=== PATIENT | male | born 1940 | race Caucasian/White ===

== ENCOUNTER 2019-04-06 11:47 | Emergency (ER) | payer MEDICARE ==
[~2019-04-06] VITALS: Ht 177.8 cm; Wt 86.4 kg
[2019-04-06 12:04] VITALS: BP 154/73
[2019-04-06] MEDS ORDERED: proparacaine 0.5% ophthalmic drops 15ml EACHEYE ONE (13:55)
[2019-04-06] MEDS ORDERED: CIPR2.5D18 EACHEYE (14:20)
== END 2019-04-06 14:26 | disposition home or self-care (01) ==
LOC: ER 11:48
DX: T15.01XA Foreign body in cornea, right eye, initial encounter (principal); Z79.899 Other long term (current) drug therapy; W22.8XXA Striking against or struck by other objects, initial encounter; Y93.89 Activity, other specified; Y92.89 Other specified places as the place of occurrence of the external cause; Y99.8 Other external cause status
CPT/HCPCS: 65220; 99284

== ENCOUNTER 2023-05-23 11:13 | Day surgery (SDC) | payer MEDICARE ==
[~2023-05-23] VITALS: Ht 177.8 cm; Wt 77.1 kg
[2023-05-23] VITALS (12 sets, daily range): BP systolic 108–154; BP diastolic 48–120; PULSE 50–61; RESP 16; TEMP 97.8; O2SAT 92–99
[~2023-05-23 11:13] MED LIST: APIX5TAB3 PO; FINA5TAB11 PO; FLO0.4C; LISI10TA27 PO; OMEP40CA21 PO; ROSU5TAB12 PO; SITA100T11 PO; SOTA80TA73 PO
[2023-05-23] MEDS ORDERED: LIDOcaine 1% 30ml preserv. free vial ONE (11:36)
[2023-05-23] MEDS ORDERED: normal saline 1000ml 1,000 ML IV PRN (11:40)
[2023-05-23] MEDS ORDERED: MULT-1085 PO (12:15)
[2023-05-23] MEDS ORDERED: CELE-127 PO (12:15)
[2023-05-23 12:28] LABS: BASOPHILS # (AUTO) 0.1 X10'3 (0-0.2); BASOPHILS % (AUTO) 0.7 % (0-1); EOSINOPHILS # (AUTO) 0.3 X10'3 (0-0.9); EOSINOPHILS % (AUTO) 3.2 % (0-6); HEMOGLOBIN 14.2 g/dl (14.0-17.9); WHITE BLOOD COUNT 10.1 X10'3 (4.5-11.0)
[2023-05-23 12:29] LABS: LYMPHOCYTES # (AUTO) 1.7 X10'3 (1.1-4.8); LYMPHOCYTES % (AUTO) 17.2 % (21-51); MEAN CORPUSCULAR HEMOGLOBIN 32.8 PG (27.0-31.0); MEAN CORPUSCULAR HGB CONC 33.1 g/dL (33.0-36.5); MEAN CORPUSCULAR VOLUME 99.1 FL (78-98); MEAN PLATELET VOLUME 10.9 FL (7.4-10.4); MONOCYTES % (AUTO) 10.1 % (2-12); NEUTROPHILS % (AUTO) 68.8 % (42-75); PLATELET COUNT 211 X10'3 (140-440); RED BLOOD COUNT 4.33 X10'6 (4.70-6.10); RED CELL DISTRIBUTION WIDTH 14.8 % (11.5-14.5)
[2023-05-23 12:30] LABS: INR 1.1 INR; PROTHROMBIN TIME 11.5 SECONDS (9.0-12.0)
== END 2023-05-23 14:38 | disposition home or self-care (01) ==
LOC: SSTAY O 11:13
PROVIDERS: ATTEND Radiology Vascular & Interventional Radiology
DX: M89.8X5 Other specified disorders of bone, thigh (principal); E11.9 Type 2 diabetes mellitus without complications; I10 Essential (primary) hypertension; Z87.891 Personal history of nicotine dependence; Z79.899 Other long term (current) drug therapy; Z79.01 Long term (current) use of anticoagulants; Z85.118 Personal history of other malignant neoplasm of bronchus and lung; Z90.2 Acquired absence of lung [part of]; Z82.61 Family history of arthritis
CPT/HCPCS: 20225; 36415; 77012; 82948; 85025; 85610; 99152; 99153; J3490; J7030; 71250; A6258

== ENCOUNTER 2023-05-25 05:28 | Day surgery (SDC) | payer MEDICARE ==
[2023-05-21 15:06] LABS: BASOPHILS # (AUTO) 0.1 X10'3 (0-0.2); BASOPHILS % (AUTO) 0.7 % (0-1); EOSINOPHILS # (AUTO) 0.4 X10'3 (0-0.9); MEAN CORPUSCULAR VOLUME 98.9 FL (78-98)
[2023-05-21 15:08] LABS: EOSINOPHILS % (AUTO) 4.5 % (0-6); LYMPHOCYTES # (AUTO) 1.7 X10'3 (1.1-4.8); LYMPHOCYTES % (AUTO) 20.5 % (21-51); MEAN CORPUSCULAR HEMOGLOBIN 33.2 PG (27.0-31.0); MEAN CORPUSCULAR HGB CONC 33.6 g/dL (33.0-36.5); MEAN PLATELET VOLUME 10.3 FL (7.4-10.4); MONOCYTES % (AUTO) 11.7 % (2-12); NEUTROPHILS # (AUTO) 5.2 X10'3 (1.8-7.7); NEUTROPHILS % (AUTO) 62.6 % (42-75); PRE OP HEMATOCRIT 41.7 % (42.0-52.0); PRE OP PLATELET COUNT 199 X10'3 (140-440); PRE OP WHITE BLOOD COUNT 8.4 10'3 (4.8-10.8); RED BLOOD COUNT 4.22 X10'6 (4.70-6.10); RED CELL DISTRIBUTION WIDTH 14.3 % (11.5-14.5)
[2023-05-21 15:14] LABS: ALBUMIN 3.3 G/DL (3.4-5.0); ALBUMIN/GLOBULIN RATIO 0.9 (1.1-1.5); ALKALINE PHOSPHATASE 92 IU/L (46-116); BLOOD UREA NITROGEN 18 MG/DL (7-18); BUN/CREATININE RATIO 20.5 (10.0-20.0); CALCIUM 9.4 MG/DL (8.5-10.1); CHLORIDE 103 MMOL/L (99-107); CREATININE 0.88 MG/DL (0.60-1.10); PRE OP ALT 20 U/L (30-65); PRE OP ANION GAP 7 (8-16); PRE OP AST 17 U/L (10-37); PRE OP BILIRUB, TOTAL 0.4 MG/DL (0.0-1.0); PRE OP GLUCOSE 109 MG/DL (70-104); PRE OP POTASSIUM 4.3 MMOL/L (3.4-5.1); PRE OP SODIUM 142 MMOL/L (135-145); TOTAL CARBON DIOXIDE 32.1 MMOL/L (24-32); eGFR 83 ML/MIN
[2023-05-21 16:10] LABS: GIANT PLATELET FEW; LARGE PLATELETS FEW; PLATELET ESTIMATE NORMAL
[2023-05-24] MEDS: DOCUMENT DATE & TIME OF BETA-BLOCKER PO ONE (19:00)
[2023-05-25] VITALS (9 sets, daily range): BP systolic 137–158; BP diastolic 62–74; PULSE 47–67; RESP 15–67; TEMP 98.4; O2SAT 94–100
[~2023-05-25] VITALS: Ht 180.3 cm; Wt 76.0 kg
[~2023-05-25 05:28] MED LIST changes: +CELE-127 PO; +MULT-1085 PO; +fentaNYL/PF 50MCG/1 ML 2ML syringe ONE; +midazolam 1 mg/ML 2ml injection ONE
[2023-05-25] MEDS: famotidine 20mg tablet PO ONE (06:17)
[2023-05-25] MEDS: ringers solution, lacted 1,000 ML IV SCH (06:18)
[2023-05-25] MEDS ORDERED: epiNEPHrine 1 MG/ML 1 ml ampule **BRONCH ONLY ONE (07:26)
[2023-05-25] MEDS ORDERED: LIDOCAINE 4% (40MG/ML) topical solution 50ml **BRONCH ONLY ONE (07:26)
[2023-05-25] MEDS ORDERED: sevoflurane 250ml liquid IH ONE (07:45)
[2023-05-25] MEDS ORDERED: dexamethasone sod phosphate 10mg/ml inj ONE (07:45)
[2023-05-25] MEDS ORDERED: ePHEDrine 50MG/ML INJ. ONE (07:45)
[2023-05-25] MEDS ORDERED: fentaNYL/PF 50MCG/1 ML 2ML syringe ONE (07:54)
[2023-05-25] MEDS ORDERED: midazolam 1 mg/ML 2ml injection ONE (07:54)
[2023-05-25] MEDS ORDERED: propofol inj 20 ML IV ONE (08:15)
[2023-05-25] MEDS ORDERED: ondansetron/PF 4mg/2ml inj ONE (08:15)
[2023-05-25] MEDS ORDERED: rocuronium 10mg/ml inj IV ONE (08:15)
[2023-05-25] MEDS ORDERED: glycopyrrolate 0.2mg/ml inj ONE (08:16)
[2023-05-25] MEDS ORDERED: neostigmine methylsulfate 1 MG/ML 10ml vial ONE (08:16)
[2023-05-25] MEDS ORDERED: ringers solution, lacted 1,000 ML IV SCH (08:30)
[2023-05-25] MEDS ORDERED: labetalol 20mg/4ml (5mg/ml) syringe IV PRN (08:30)
[2023-05-25] MEDS ORDERED: fentaNYL/PF 50MCG/1 ML 2ML syringe IV PRN ×2 (08:30)
[2023-05-25] MEDS ORDERED: hydrALAZINE 20mg/ml inj. IV PRN (08:30)
[2023-05-25] MEDS ORDERED: morphine 2 MG/ML inj. syringe IV PRN (08:30)
[2023-05-25] MEDS ORDERED: morphine 4 MG/ML inj SYRINge IV PRN (08:30)
[2023-05-25] MEDS ORDERED: ondansetron/PF 4mg/2ml inj IV PRN (08:30)
== END 2023-05-25 10:35 | disposition home or self-care (01) ==
LOC: PAS 05:28
PROVIDERS: ATTEND Internal Medicine Critical Care Medicine
DX: R91.8 Other nonspecific abnormal finding of lung field (principal); C34.32 Malignant neoplasm of lower lobe, left bronchus or lung; J44.9 Chronic obstructive pulmonary disease, unspecified; I10 Essential (primary) hypertension; E11.9 Type 2 diabetes mellitus without complications; Z98.890 Other specified postprocedural states; Z79.01 Long term (current) use of anticoagulants; Z79.899 Other long term (current) drug therapy; Z86.718 Personal history of other venous thrombosis and embolism; F17.210 Nicotine dependence, cigarettes, uncomplicated; Z90.2 Acquired absence of lung [part of]
CPT/HCPCS: 31624; 31628; 31629; 31653; 36415; 71045; 71250; 80053; 82948; 85025; 87015; 87070; 87116; 87206; 88172; 88173; 88305; 88341; 88342; 93005; 94760; J1100; J2250; J2405; J2704; J2710; J3010; J3490; J7120; Z7506; Z7508; Z7512; 31622; 31625; 31626; 31635; 31654; 85008; A4615; A4618; J0171

== ENCOUNTER 2024-12-03 08:35 | Day surgery (SDC) | payer MEDICARE ==
[2024-12-02 12:39] LABS: MEAN PLATELET VOLUME 9.9 FL (7.4-10.4); RED CELL DISTRIBUTION WIDTH 15.1 % (11.5-14.5)
[2024-12-02 12:47] LABS: CREATININE 0.77 MG/DL (0.60-1.10); TOTAL CARBON DIOXIDE 31.4 MMOL/L (24-32); eGFR > 90 ML/MIN
[2024-12-02 12:48] LABS: APTT 26 SECONDS (22-32); INR 1.0 INR
[2024-12-03] VITALS (11 sets, daily range): BP systolic 100–158; BP diastolic 51–98; PULSE 51–66; RESP 14–16; TEMP 98.4; O2SAT 95–97
[~2024-12-03] VITALS: Ht 177.8 cm; Wt 77.7 kg
[~2024-12-03 08:35] MED LIST changes: -ROSU5TAB12 PO; +ROSU5TAB51 PO; -fentaNYL/PF 50MCG/1 ML 2ML syringe ONE; -midazolam 1 mg/ML 2ml injection ONE
[2024-12-03] MEDS ORDERED: FLUT1BLS4 INH (09:26)
[2024-12-03] MEDS ORDERED: SOTA120T9 PO (09:26)
[2024-12-03] MEDS ORDERED: fentaNYL/PF 50MCG/1 ML 2ML syringe ONE (13:27)
[2024-12-03] MEDS ORDERED: LIDOcaine 1% (10mg/ml) 2ml vial ONE (13:27)
[2024-12-03] MEDS ORDERED: midazolam 1 mg/ML 2ml injection ONE (13:27)
[2024-12-03] MEDS ORDERED: verapamil 2.5 mg/ml inj IV ONE (13:27)
[2024-12-03] MEDS ORDERED: nitroGLYCERIN 500mcg/5mL D5W 5 ML IV ONE ×2 (13:28→15:04)
[2024-12-03] MEDS ORDERED: iohexol 350 MG/ML 50ML vial IV ONE (13:28)
[2024-12-03] MEDS ORDERED: heparin 1,000unit/ml 10ml vial 10 ML ONE (13:28)
[2024-12-03] MEDS ORDERED: heparin 25,000 UNIT/250ml bag 250 ML IV ONE (14:17)
[2024-12-03] MEDS ORDERED: phenylephrine 10mg/ml inj. ONE (15:10)
[2024-12-03] MEDS ORDERED: clopidogrel 300mg tablet ONE (15:23)
[2024-12-03 15:29] LABS: ISTAT HGB ART 11.9 g/dl (14.0-17.9); ISTAT Hct ART 35 %PCV (42-52); ISTAT O2 SATURATION ARTERIAL 94 % (95-98); ISTAT SOURCE ART
[2024-12-03] MEDS ORDERED: CLOP75TA34 PO (16:12)
[2024-12-03] MEDS ORDERED: ASPI81TA52 PO (16:12)
[2024-12-03] MEDS ORDERED: ROSU40TA PO (16:12)
--- NOTE | 2024-12-03 16:24 | ELECTROCARDIOGRAPH REPORT ---
[facility] Test Date: 2024-12-03 Test Time: 16:22:43 Pat Name: JOSE ALBERTO HARPER Department: [facility] Patient ID: [id number] Room: Gender: M Cath Lab Tech: : [id number] Requested By: TORIBIO BURNETT Order Number: [id number] Reading MD: Dr. RENATA Burnett Measurements Intervals Walling Rate: 49 P: 17 WA: 168 QRS: 52 QRSD: 95 T: 46 QT: 437 QTc: 395 Interpretive Statements Sinus bradycardia Abnormal R-wave progression, early transition Electronically Signed On 12-05-2024 20:18:[address] RENATA Burnett Please click the below link to view image of tracing.
[2024-12-03] MEDS ORDERED: HYDROcodone/acetaminophen 5mg/325mg tablet PO PRN (16:35)
[2024-12-03] MEDS ORDERED: HYDROcodone/acetaminophen 10/325mg tab PO PRN (16:35)
[2024-12-04 06:45] LABS: ISTAT HGB MIX 10.2 g/dl (14.0-17.9); ISTAT Hct MIX 30 %PCV (42-52); ISTAT O2 SATURATION MIX VENOUS 69 % (60-80); ISTAT SOURCE VEN
--- NOTE | 2024-12-06 08:13 | CARDIOLOGY REPORT ---
DATE OF SERVICE: 12/03/2024 DICTATING PHYSICIAN: RENATA Burnett MD CARDIAC CATHETERIZATION GENDER: Male. AGE: 84 years. HEIGHT: 177 cm. WEIGHT: 77.7 kg. BODY SURFACE AREA: 1.95 m2. PRIMARY PHYSICIAN: Prem Kumar MD. TOURIST CABIN KEEPER: RENATA Burnett MD INDICATION: The patient is an 84-year-old male with history of diabetes, hypertension, hyperlipidemia, and COPD with continued exertional fatigue and shortness of breath. He underwent myocardial perfusion scan, found to have apical reversible defect in view of progressive increasing severe tiredness and fatigue. The patient prefers to proceed with coronary angiography. Risks, benefits, and alternative options were discussed. Informed consent was obtained. PROCEDURE TECHNIQUE: The patient underwent left heart catheterization with a right radial approach, 6-Sudanese radial sheath, post-procedure access site hemostasis with right radial band. The patient tolerated the procedure well. The patient also had a right antecubital and right heart catheterization, 6-Sudanese sheath, post-procedure access site hemostasis with manual compression. PROCEDURES DONE: * Ultrasound-guided right radial artery access. * Right heart catheterization. * Left heart catheterization. * LVG. * Coronary cineangiography. * Angioplasty of the diagonal branch. * PTCA stenting of the LAD. * Conscious sedation for 105 minutes. FINDINGS: HEMODYNAMICS: Aortic systolic 130, diastolic 60, mean 81 mmHg. LVEDP of 24 mmHg. No gradient across the aortic valve. Right atrial mean 5 mmHg. RV 26/7 mmHg. PA 29/8 mmHg. Pulmonary capillary wedge pressure of 7 mmHg. Cardiac output thermal dilution with 4.25 L/min. Cardiac index is 2.08 L/min/m2. LVG: Overall left ventricular systolic function is normal with 70%. CORONARY CINEANGIOGRAPHY: Left main coronary artery is a caliber vessel arising at the left aortic sinus engaged with JL4 catheter with right radial approach, has mild luminal irregularities. LAD is a medium caliber vessel arising at the bifurcation of the left main coronary artery, courses through the anterior intraventricular groove and ends by wrapping around the apex. There is 80% narrowing of the LAD in the proximal portion just proximal to the origin of the diagonal branch. Diagonal is 2.25 caliber with mild luminal irregularities. LAD in the mid portion and has about 20% narrowing. Circumflex artery is a medium caliber vessel arising at bifurcation of the left main coronary artery which courses through the left AV groove with mild luminal irregularities. OM1 is 2 mm caliber with mild luminal irregularities. OM2 is 2.5 mm caliber with mild luminal irregularities. OM3 is 2 mm caliber with minimal luminal irregularities. There is 1.5 mm ramus intermedius seen. Right coronary artery is a medium caliber dominant vessel arising at the right aortic sinus which courses through the right AV groove, ends at the posterior crux by dividing into PDA and posterolateral branch. Mid RCA has about 40% narrowing. PTCA STENTING OF THE PROXIMAL LAD A 6-Sudanese XT LAD #4 guide without side hole gave good support. Lesion was crossed with PT2 moderate wire. However, there was difficulty in crossing through or putting a wire in the diagonal branch. Because of the acute angulation there, finally, it was decided to modify the lesion with the angioplasty of the LAD. LAD lesion was angioplastied with 2.75 x 12 mm Trek balloon at 12 atmospheric pressure. Subsequently, we were able to wire the diagonal branch, which was angioplastied with 2.25 x 12 mm Trek balloon. Subsequently, LAD was stented with 3.5 x 18 mm Resolute Knightsen stent postdilated to 14 atmospheres with 0% JOSE 3 flow. The patient tolerated the procedure well with good antegrade flow and diagonal flow was also very good. There was no compromise of the diagnoal ostium. IMPRESSION: An 84-year-old male with a LV ejection fraction of 70%. LVEDP of 24 mmHg with no gradient across the aortic valve. Pulmonary capillary wedge pressure of 7 mmHg. PA pressure of 29/8 mmHg. Left main normal. Proximal LAD with 80% narrowing successfully angioplastied and stented with 3.5 x 18 mm Resolute Knightsen stent with 0% JOSE 3 flow. Circumflex artery with mild luminal irregularities. Mid RCA with 40% narrowing. RECOMMENDATIONS: Recommend continued aggressive coronary risk factor modification, namely low-fat, low cholesterol diet, maintaining ideal body weight, keeping LDL less than 70 mg, regular exercise program. RENATA Burnett MD TID: [id number] RECEIPT: [id number] BC/VIS/AMI cc: Prem Kumar MD [facility]
== END 2024-12-03 20:30 | disposition home or self-care (01) ==
LOC: SSTAY O 08:35
PROVIDERS: ATTEND Internal Medicine Cardiovascular Disease
DX: R94.39 Abnormal result of other cardiovascular function study (principal); I25.10 Atherosclerotic heart disease of native coronary artery without angina pectoris; I10 Essential (primary) hypertension; E11.9 Type 2 diabetes mellitus without complications; E78.5 Hyperlipidemia, unspecified; I48.0 Paroxysmal atrial fibrillation; J44.9 Chronic obstructive pulmonary disease, unspecified; M19.90 Unspecified osteoarthritis, unspecified site; Z79.899 Other long term (current) drug therapy; Z90.2 Acquired absence of lung [part of]; Z98.890 Other specified postprocedural states; Z80.1 Family history of malignant neoplasm of trachea, bronchus and lung
CPT/HCPCS: 36415; 80048; 82803; 82948; 85014; 85025; 85347; 85610; 85730; 92921; 93005; 93460; 99152; 99153; A6258; A6402; C1725; C1751; C1769; C1874; C1894; C9600; J1644; J2003; J2250; J2371; J3010; J3490; J7030; Q0163; Q9967; Z7610; 76937; A6449